=== PATIENT | female | born 2000 | race Two or more races ===

== ENCOUNTER 2024-06-02 20:21 | Emergency (ER) | payer OTHER ==
[~2024-06-02] VITALS: Ht 165.1 cm; Wt 62.6 kg
[2024-06-02] MEDS ORDERED: BENADRYL25 MG PO (20:41)
[2024-06-02 20:42] VITALS: BP 129/79; O2SAT 100
[2024-06-02] MEDS ORDERED: 0.9 % SODIUM CHLORIDE 1,000 ML IV ONE (22:15)
[2024-06-02] MEDS ORDERED: ONDANSETRON HCL 2 MG/ML VIAL IV ONE (22:15)
[2024-06-02] MEDS ORDERED: FAMOtidine 10 MG/ML (4ML VIAL) IV ONE (22:15)
[2024-06-02 23:09] LABS: HEMATOCRIT 39.7 % (36.0-45.00); HEMOGLOBIN 13.4 g/dL (12.0-15.00); MEAN CELL VOLUME 82.8 fL (80.00-100.00); MEAN CORPUSCULAR HEMOGLOBIN 27.9 pg (27.00-32.0); MEAN CORPUSCULAR HGB CONC 33.7 g/dl (32.0-36.0); PLATELET COUNT 259 K/uL (150-450); RED BLOOD COUNT 4.79 M/uL (4.00-6.00); RED CELL DISTRIBUTION WIDTH 16.2 % (11.5-14.5)
[2024-06-02 23:48] LABS: PH,URINE 7.5 (5.0-8.0); URINE APPEARANCE Clear; URINE BILIRRUBIN Negative (NEGATIVE); URINE BLOOD Negative; URINE COLOR Yellow; URINE GLUCOSE Negative (NEGATIVE); URINE KETONE Negative (NEGATIVE); URINE LEUKOCYTE Negative; URINE NITRATE Negative; URINE PROTEIN Negative (NEGATIVE); URINE UROBILINOGEN 0.2 E.U./dl
[2024-06-02 23:51] LABS: URINE BACTERIA 21.3 uL (0.0-1933); URINE EPITHELIAL CELLS 4.9 uL (0.0-38.8)
[2024-06-02 23:54] LABS: URINE RBC 0.6 uL (0.0-20.8); URINE WBC 0.1 uL (0.0-23.2)
[2024-06-03 00:08] LABS: BILIRUBIN TOTAL 0.44 mg/dL (0.3-1.2); CALCIUM 8.6 mg/dL (8.5-10.1); CREATININE SERUM 0.78 mg/dL (0.55-1.02); GFR 92.35; GLOBULINA 2.9 G/DL (2.4-3.5); POTASSIUM 3.21 mEq/L (3.5-5.1); TOTAL PROTEIN 6.9 gm/dL (6.4-8.2)
[2024-06-03] MEDS ORDERED: PROMETHAZINE HCL 25 MG/ML AMPUL IV STA (00:21)
[2024-06-03] MEDS ORDERED: PROMETHAZINE HCL 25 MG/ML AMPUL IM STA (00:22)
[2024-06-03 01:12] LABS: AMYLASE 56 U/L (25-115); LIPASE 20 U/L (13-75)
[2024-06-03] MEDS ORDERED: ZOFRAN8 MG PO (03:27)
[2024-06-03] MEDS ORDERED: CIPRO500 MG PO (03:27)
[2024-06-03] MEDS ORDERED: INTESTINEX680 M2 PO (03:27)
[2024-06-03] MEDS ORDERED: PEPCID40 MG PO (03:27)
== END 2024-06-03 03:38 ==
LOC: ER 20:23
PROVIDERS: Emergency Medicine; General Practice; Preventive Medicine Public Health & General Preventive Medicine
DX: R53.81 Other malaise (principal); K52.9 Noninfective gastroenteritis and colitis, unspecified; Z88.0 Allergy status to penicillin